=== PATIENT | female | born 1975 | race Caucasian/White ===

== ENCOUNTER 2017-08-19 14:21 | Outpatient (CLI) ==
[2014-05-18 09:37] VITALS: BMI 34.3
== END 2017-08-19 14:22 | disposition home or self-care (01) ==
LOC: RHC-LAB 14:21
PROVIDERS: ATTEND Emergency Medicine
DX: E78.5 Hyperlipidemia, unspecified (principal); I10 Essential (primary) hypertension
CPT/HCPCS: 36415; 80053; 80061; 84443; 85025

== ENCOUNTER 2018-07-05 15:27 | Outpatient (CLI) ==
[2014-05-18 09:37] VITALS: BMI 34.3
== END 2018-07-05 15:28 | disposition home or self-care (01) ==
LOC: RHC-LAB 15:27
PROVIDERS: ATTEND Nurse Practitioner Family
DX: I10 Essential (primary) hypertension (principal); E66.9 Obesity, unspecified
CPT/HCPCS: 36415; 80053; 80061; 85025